=== PATIENT | female | born 1935 | race African-American/Black ===

== ENCOUNTER 2016-11-25 10:49 | Emergency (ER) | payer OTHER ==
[~2016-11-25] VITALS: Ht 170.2 cm; Wt 81.7 kg
--- NOTE | ~2016-11-25 | EKG ---
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
[~2016-11-25 10:49] MED LIST: ACETAMINOPHEN325 M1 PO; ADULT LOW DOSE81 MG PO; ALLOPURINOL 10100 M1 PO; APAP/CODEINE ELI5 M1 OR; APAP500 PO; CARVEDILOL3.125 MG PO; COLACE100 MG PO; DIABETA 5MG TABL5 MG PO; DOXYCYCLINE 10100 MG PO; GUAIFENESIN/COD10 M1 PO; HYDRALAZINE 2525 M1 PO; HYDROCHLOROTHIA25 M1 PO; IBUPROFEN200 M2 PO; IRON PO; IRON325 PO; LASIX 40 MG TAB40 M1 PO; LISINOPRIL40 MG PO; LOPRESSOR PO; MELOXICAM15 MG PO; MOBIC15 MG PO; MOM PO; NEPHROCAPS SOFT1 CAP PO; PACERONE 200 M200 M1 PO; PACERONE 200 M200 M1 RE; PHENERGAN 25 MG25 M1 PO; PHOSLO667 MG PO; POTASSIUM20 PO; PREDNISONE 10 M10 M1 PO; PRILOSEC 20 MG20 MG PO; PRILOSEC40 MG PO; PROTONIX40 MG PO; RENOCAP PO; RENVELA800 MG PO; SIMETHICON CHEW80 M1 PO; TOPROL XL50 MG PO; VALIUM5 MG PO; VENTOLIN HFA 1818 GM INH; VISINE15 ML OPHTHALMIC; VITAMIN D1000 UNI1 PO; ZOCOR 10 MG TAB10 MG PO; ZPAK PO
[2016-11-25 11:25] LABS: HEMATOCRIT 31.4 % (37.0-47.0); HEMOGLOBIN 10.4 gm/dL (12.0-15.0); MCH 27.6 pg (26.0-34.0); MCHC 33.1 g/dL (28.0-37.0); MCV 83.3 fL (80.0-100.0); PLATELET COUNT 304 thou/uL (150-400); RBC 3.78 mil/uL (4.20-5.00); RDW 14.5 % (10.5-14.5); WBC 10.2 thou/uL (4.0-11.0)
[2016-11-25 11:26] LABS: MANUAL DIFF YES
[2016-11-25 11:30] LABS: ANION GAP 6 mmol/L (7-16); BUN 9 mg/dL (7-18); CHLORIDE 97 mmol/L (98-107); CO2 31 mmol/L (21-32); CREATININE 3.1 mg/dL (0.6-1.0); GLUCOSE 88 mg/dL (74-106); POTASSIUM 3.5 mmol/L (3.5-5.1); SODIUM 134 mmol/L (136-145)
[2016-11-25 11:38] LABS: TROPONIN-I < 0.04 ng/mL (<0.04-0.07)
[2016-11-25 12:10] LABS: ABSOLUTE NEUTROPHILS 6.7 thou/uL (1.4-8.2); HYPOCHROMASIA 1+; TOTAL CELL COUNT 100
[2016-11-25 12:11] LABS: ANISOCYTOSIS 3+; POLYCHROMASIA SLIGHT
[2016-11-25] MEDS ORDERED: NEPHROCAPS SOFT1 CAP PO (13:17)
[2016-11-25] MEDS ORDERED: SENSIPAR 30 MG30 MG PO (13:18)
[2016-11-25] MEDS ORDERED: COREG6.25 MG PO (13:18)
[2016-11-25] MEDS ORDERED: GLYBURIDE 2.52.5 MG PO (13:19)
[2016-11-25] MEDS ORDERED: ANTIVERT25 MG PO (13:19)
[2016-11-25] MEDS ORDERED: RENVELA800 MG PO (13:20)
[2016-11-25 13:54] LABS: TSH 1.484 uIU/mL (0.358-3.740)
[2016-11-25 14:12] LABS: % SATURATION 12 % (20-39); IRON 23 ug/dL (50-170); TIBC 186 ug/dL (250-450); UIBC 163 ug/dL
== END 2016-11-25 14:17 | disposition home or self-care (01) ==
LOC: ER 10:49
PROVIDERS: Emergency Medicine
DX: K52.9 Noninfective gastroenteritis and colitis, unspecified (principal); I12.9 Hypertensive chronic kidney disease with stage 1 through stage 4 chronic kidney disease, or unspecified chronic kidney disease; E11.22 Type 2 diabetes mellitus with diabetic chronic kidney disease; N18.9 Chronic kidney disease, unspecified; J44.9 Chronic obstructive pulmonary disease, unspecified; R53.83 Other fatigue; M19.90 Unspecified osteoarthritis, unspecified site; Z98.890 Other specified postprocedural states; Z91.041 Radiographic dye allergy status; Z88.0 Allergy status to penicillin; Z87.891 Personal history of nicotine dependence; Z99.2 Dependence on renal dialysis

== ENCOUNTER 2016-12-05 11:34 | Emergency (ER) | payer OTHER ==
[~2016-12-05] VITALS: Ht 170.2 cm; Wt 81.7 kg
--- NOTE | ~2016-12-05 | EKG ---
[address] [address] ELECTROCARDIOGRAM REPORT Name: MIRANDA PERALTA Room #: [facility] [id number] Admission: 12/05/16 Attend Phys: Discharge: 12/05/16 Date of : 33 Report #: [id number] THIS REPORT FOR: //name// [facility] ED Test Date: 2016-12-05 Test Time: 12:12:18 Pat Name: MIRANDA PERALTA Department: Room: Gender: F Ranch Supervisor: JUSTINE : 1935 Requested By: Avel Christensen Order Number: [id number] MD: Chris Garcia Measurements Intervals [place] Rate: 77 P: 68 MS: 175 QRS: -2 QRSD: 92 T: 53 QT: 423 QTc: 479 Interpretive Statements Sinus rhythm Anteroseptal infarct, old Compared to ECG 11/25/2016 10:57:19 Sinus tachycardia no longer present Electronically Signed On 12-05-2016 18:14:36 CDT by Chris Garcia [email or web address] <ELECTRONICALLY SIGNED> By: Chris Garcia MD, [facility] 12/05/16 1814 11 11 Chris Garcia MD, [facility] /EPI
[~2016-12-05 11:34] MED LIST changes: +ANTIVERT25 MG PO; +COREG6.25 MG PO; +GLYBURIDE 2.52.5 MG PO; +SENSIPAR 30 MG30 MG PO
[2016-12-05 12:31] LABS: HEMATOCRIT 29.1 % (37.0-47.0); HEMOGLOBIN 9.7 gm/dL (12.0-15.0); MCH 27.4 pg (26.0-34.0); MCHC 33.3 g/dL (28.0-37.0); MCV 82.3 fL (80.0-100.0); PLATELET COUNT 280 thou/uL (150-400); RBC 3.53 mil/uL (4.20-5.00); RDW 15.2 % (10.5-14.5); WBC 7.9 thou/uL (4.0-11.0)
[2016-12-05 12:34] LABS: MANUAL DIFF YES
[2016-12-05 12:45] LABS: CALCIUM 8.6 mg/dL (8.5-10.1); CREATININE 7.6 mg/dL (0.6-1.0); POTASSIUM 4.6 mmol/L (3.5-5.1)
[2016-12-05 12:57] LABS: ALBUMIN 3.2 g/dL (3.4-5.0); TOTAL BILIRUBIN 0.3 mg/dL (<0.1-1.0); TOTAL PROTEIN 6.7 g/dL (6.4-8.2); TROPONIN-I 0.09 ng/mL (<0.04-0.07)
[2016-12-05 13:04] LABS: ABSOLUTE NEUTROPHILS 4.3 thou/uL (1.4-8.2); ANISOCYTOSIS 1+; HYPOCHROMASIA 1+; TOTAL CELL COUNT 100
== END 2016-12-05 14:32 | disposition home or self-care (01) ==
LOC: ER 11:34
PROVIDERS: Physician Assistant
DX: R51 Headache (principal); D64.9 Anemia, unspecified; R60.0 Localized edema; N18.9 Chronic kidney disease, unspecified; I12.9 Hypertensive chronic kidney disease with stage 1 through stage 4 chronic kidney disease, or unspecified chronic kidney disease; E11.22 Type 2 diabetes mellitus with diabetic chronic kidney disease; J44.9 Chronic obstructive pulmonary disease, unspecified; M19.90 Unspecified osteoarthritis, unspecified site; Z99.2 Dependence on renal dialysis; Z88.0 Allergy status to penicillin; Z91.041 Radiographic dye allergy status; Z87.891 Personal history of nicotine dependence